=== PATIENT | male | born 1960 | race Caucasian/White ===

== ENCOUNTER 2020-09-26 13:59 | Emergency (ER) | payer BC, OTHER ==
[~2020-09-26] VITALS: Ht 180.3 cm; Wt 77.1 kg
[~2020-09-26 13:59] MED LIST: FLAGYL500 MG PO; LEVAQUIN500 MG PO; LEVOTHYROXINE125 MCG PO
--- NOTE | 2020-09-26 14:23 | Emergency Department Note ---
History of Present Illnes History of Present Illness Chief Complaint: General Medicine Complaints History of Present Illness This is a 59 year old male arrived to the ED with streaking over his lower left leg after a spider bite. Chief Complaint Comment PATIENT IN FROM HOME WITH COMPLAINTS OF SPIDER BITE TO LEFT ANKLE; STATES STARTED ABOUT 3 DAYS AGO, NOW WITH PAIN AND SWELLING. PATIENT ALERT AND ORIENTED, RESP EVEN AND NONLABORED, APPEARS IN NO DISTRESS, RATES PAIN 05/14 Historian: Patient Arrival Mode: Car Onset (how long ago): day(s) Radiation: Reports non-radiation Severity: mild Onset quality: gradual Duration (how long): day(s) Timing of current episode: constant Progression: unchanged Chronicity: new Relieving factors: none Associated symptoms: Denies fever/chills, Denies loss of appetite, Denies weakness Past Medical/Family History Physician Review I have reviewed the patient's past medical and family history. Any updates have been documented here. Past Medical History Recent Fever: No Clinical Suspicion of Infectio: No New/Unexplained Change in Ment: No Past Medical History: Hypothyroidism Other Surgery: HERNIA REPAIR X 4, HEMORRHOID REMOVAL, HAND SURGERY Social History Smoking Cessation: Current every day smoker Alcohol Use: Social Physically hurt or threatened: No Other Last Tetanus: UNK Review of Systems Review of Systems Constitutional: Reports no symptoms EENTM: Reports no symptoms Cardiovascular: Reports no symptoms Respiratory: Reports no symptoms Gastrointestinal: Reports no symptoms Genitourinary: Reports no symptoms Musculoskeletal: Reports as per HPI Integumentary: Reports no symptoms Neurological: Reports no symptoms Psychological: Reports no symptoms Endocrine: Reports no symptoms Hematological/Lymphatic: Reports no symptoms Physical Exam Related Data Allergies: Coded Allergies: No Known Drug Allergies (Verified Allergy, Unknown, NONE, 09/26/20) Triage Vital Signs Vital Signs Date Time Temp Pulse Resp B/P (MAP) Pulse Ox O2 Delivery O2 Flow Rate FiO2 09/26/20 14:04 98.0 96 20 128/79 97 Room Air Vital signs reviewed: Yes Physical Exam CONSTITUTIONAL Constitutional: Present well-developed, Present well-nourished HENT HENT: Present normocephalic, Present atraumatic, Present oropharynx clear/moist, Present nose normal HENT L/R: Present left ext ear normal, Present right ext ear normal EYES Eyes: Reports PERRL, Reports conjunctivae normal NECK Neck: Present ROM normal PULMONARY Pulmonary: Present effort normal, Present breath sounds normal CARDIOVASCULAR Cardiovascular: Present regular rhythm, Present heart sounds normal, Present capillary refill normal, Present normal rate GASTROINTESTINAL Abdominal: Present soft, Present nontender, Present bowel sounds normal GENITOURINARY Genitourinary: Present exam deferred SKIN Skin: Present warm, Present dry, Present erythema (1 cm circular ulcer noted while circumcised with scabbed face, erythema streaks noted over anterior distal lower extremity, no palpable fluid collection/fluctuance/abscess, compartments are soft, patient her vastly intact) MUSCULOSKELETAL Musculoskeletal: Present ROM normal NEUROLOGICAL Neurological: Present alert, Present oriented x 3, Present no gross motor or sensory deficits PSYCHOLOGICAL Psychological: Present mood/affect normal, Present judgement normal Assessment & Plan Medical Decision Making MDM This patient presents with initial presentation of local erythema, warmth, swelling concerning for cellulitis. Sensitivity/pain to light touch around the erythematous area. No lymphangitic spread visible and no fluid pockets or fluctuance c/f abscess noted. Low c/f osteomyelitis or DVT. No immune compromise, bullae, pain out of proportion, or rapid progression c/f necrotizing fasciitis. In ED: Erythema outlined Rx: Cephalexin 500mg PO q6hrs and Bactrim Disposition: No evidence of serious bacterial illness requiring admission for IV antibiotics. Nontoxic appearing, VSS. Low risk for treatment failure based on history. Will discharge home with PO antibiotics and return precautions discussed at bedside. Assessment & Plan Final Impression: (1) Cellulitis Depart Disposition: HOME, SELF-CARE Last Vital Signs Date Time Temp Pulse Resp B/P (MAP) Pulse Ox O2 Delivery O2 Flow Rate FiO2 09/26/20 14:04 98.0 96 20 128/79 97 Room Air Home Meds Reported Medications Metronidazole (FLAGYL) 500 Mg Tablet, 500 TAB PO Q6H NEW RX 12/19/12 Levofloxacin (LEVAQUIN) 500 Mg Tablet, 500 MG PO DAILY NEW RX 12/19/12 Levothyroxine Sodium (LEVOTHYROXINE SODIUM) 125 Mcg Tablet, 125 MCG PO DAILY 12/16/12 JET BOYER DO Sep 26, 2020 14:22
[2020-09-26] MEDS ORDERED: BACTRIM DS TAB1 EACH PO (14:43)
[2020-09-26] MEDS ORDERED: KEFLEX500 MG PO (14:43)
[2020-09-26 14:50] VITALS: BP 112/78
== END 2020-09-26 14:50 | disposition home or self-care (01) ==
LOC: ER 14:20
DX: L03.116 Cellulitis of left lower limb (principal); E03.9 Hypothyroidism, unspecified; F17.210 Nicotine dependence, cigarettes, uncomplicated
CPT/HCPCS: 99283

== ENCOUNTER 2021-07-02 16:32 | Emergency (ER) | payer BC ==
[~2021-07-02] VITALS: Ht 180.3 cm; Wt 77.1 kg
[~2021-07-02 16:32] MED LIST changes: +BACTRIM DS TAB1 EACH PO; +KEFLEX500 MG PO
[2021-07-02] MEDS ORDERED: HYDROCODONE/APAP 5MG-325MG TAB PO ONE (19:00)
[2021-07-02] MEDS ORDERED: HYDROCODON-ACE1 EAC9 PO (19:03)
[2021-07-02 19:27] VITALS: BP 122/67
== END 2021-07-02 19:19 | disposition home or self-care (01) ==
LOC: ER 18:48
DX: S82.831A Other fracture of upper and lower end of right fibula, initial encounter for closed fracture (principal); X50.1XXA Overexertion from prolonged static or awkward postures, initial encounter; Y93.01 Activity, walking, marching and hiking; E03.9 Hypothyroidism, unspecified; F17.210 Nicotine dependence, cigarettes, uncomplicated
CPT/HCPCS: 99284